=== PATIENT | male | born 1940 | race Caucasian/White ===

== ENCOUNTER 2023-01-11 17:22 | Emergency (ER) | payer MEDICARE, BC ==
[~2023-01-11] VITALS: Ht 172.7 cm; Wt 105.0 kg
[2023-01-11 17:59] VITALS: BP 143/80; PULSE 85; RESP 20; TEMP 98.4; O2SAT 95
[2023-01-11 19:02] LABS: BASOPHILS % (AUTO) 0.4 % (0-1); EOSINOPHILS # (AUTO) 0.1 X10'3 (0-0.9); EOSINOPHILS % (AUTO) 1.3 % (0-6); HEMATOCRIT 35.5 % (42.0-52.0); HEMOGLOBIN 12.3 g/dl (14.0-17.9); LYMPHOCYTES # (AUTO) 0.6 X10'3 (1.1-4.8); LYMPHOCYTES % (AUTO) 6.9 % (21-51); MEAN CORPUSCULAR HEMOGLOBIN 30.3 PG (27.0-31.0); MEAN CORPUSCULAR HGB CONC 34.5 g/dL (33.0-36.5); MEAN CORPUSCULAR VOLUME 87.8 FL (78-98); MEAN PLATELET VOLUME 8.9 FL (7.4-10.4); MONOCYTES # (AUTO) 1.2 X10'3 (0-0.9); MONOCYTES % (AUTO) 12.9 % (2-12); NEUTROPHILS # (AUTO) 7.3 X10'3 (1.8-7.7); NEUTROPHILS % (AUTO) 78.5 % (42-75); PLATELET COUNT 208 X10'3 (140-440); RED BLOOD COUNT 4.05 X10'6 (4.70-6.10); RED CELL DISTRIBUTION WIDTH 13.9 % (11.5-14.5); WHITE BLOOD COUNT 9.3 X10'3 (4.5-11.0)
[2023-01-11 19:15] LABS: ALANINE AMINOTRANSFERASE 217 U/L (12-78); ALBUMIN 2.6 G/DL (3.4-5.0); ALBUMIN/GLOBULIN RATIO 0.6 (1.1-1.5); ALKALINE PHOSPHATASE 431 IU/L (46-116); ANION GAP 8 (8-16); ASPARTATE AMINO TRANSFERASE 168 U/L (10-37); BILIRUBIN,TOTAL 1.3 MG/DL (0.1-1.0); BLOOD UREA NITROGEN 28 MG/DL (7-18); BUN/CREATININE RATIO 17.2 (10.0-20.0); CALCIUM 9.1 MG/DL (8.5-10.1); CHLORIDE 104 MMOL/L (99-107); CREATININE 1.63 MG/DL (0.60-1.10); GLUCOSE 187 MG/DL (70-104); POTASSIUM 4.2 MMOL/L (3.5-5.1); SODIUM 138 MMOL/L (135-145); TOTAL CARBON DIOXIDE 25.9 MMOL/L (24-32); eCRCL 33 ML/MIN; eGFR 41 ML/MIN
== END 2023-01-11 23:52 | disposition left against medical advice (07) ==
LOC: ER 17:23
DX: R53.1 Weakness (principal); Z53.21 Procedure and treatment not carried out due to patient leaving prior to being seen by health care provider
CPT/HCPCS: 80053; 85025; 93005; 99281

== ENCOUNTER 2023-08-02 08:00 | Inpatient (IN) | payer MEDICARE, BC ==
[~2023-08-02] VITALS: Ht 172.7 cm; Wt 102.0 kg
[2023-08-02 09:29] LABS: BASOPHILS % (AUTO) 0.2 % (0-1); EOSINOPHILS % (AUTO) 0.4 % (0-6); HEMATOCRIT 35.2 % (42.0-52.0); HEMOGLOBIN 12.3 g/dl (14.0-17.9); LYMPHOCYTES # (AUTO) 0.6 X10'3 (1.1-4.8); LYMPHOCYTES % (AUTO) 9.7 % (21-51); MEAN CORPUSCULAR HEMOGLOBIN 30.5 PG (27.0-31.0); MEAN CORPUSCULAR HGB CONC 34.9 g/dL (33.0-36.5); MEAN CORPUSCULAR VOLUME 87.5 FL (78-98); MONOCYTES # (AUTO) 0.6 X10'3 (0-0.9); MONOCYTES % (AUTO) 10.3 % (2-12); NEUTROPHILS # (AUTO) 4.8 X10'3 (1.8-7.7); NEUTROPHILS % (AUTO) 79.4 % (42-75); PLATELET COUNT 107 X10'3 (140-440); RED BLOOD COUNT 4.02 X10'6 (4.70-6.10); RED CELL DISTRIBUTION WIDTH 14.4 % (11.5-14.5); WHITE BLOOD COUNT 6.1 X10'3 (4.5-11.0)
[2023-08-02 09:52] LABS: ALBUMIN 3.2 G/DL (3.4-5.0); ANION GAP 9 (8-16); BLOOD UREA NITROGEN 35 MG/DL (7-18); CALCIUM 8.5 MG/DL (8.5-10.1); CHLORIDE 104 MMOL/L (99-107); CREATININE 1.84 MG/DL (0.60-1.10); GLUCOSE 122 MG/DL (70-104); POTASSIUM 3.3 MMOL/L (3.5-5.1); PRO BRAIN NATRIURETIC PEPTIDE 239 PG/ML (0-450); SODIUM 140 MMOL/L (135-145); TOTAL CARBON DIOXIDE 27.5 MMOL/L (24-32); eCRCL 28 ML/MIN; eGFR 35 ML/MIN
[2023-08-02] MEDS: aspirin 325mg tablet PO ONE (10:31)
[2023-08-02] MEDS ORDERED: SOLI10TA7 PO (10:44)
[2023-08-02] MEDS ORDERED: SEMA1PEN3 (10:44)
[2023-08-02] MEDS ORDERED: PREG150C47 PO (10:44)
[2023-08-02] MEDS ORDERED: GLIP10TA21 PO (10:44)
[2023-08-02] MEDS ORDERED: ATOR40TA72 PO (10:44)
[2023-08-02] MEDS ORDERED: FLO0.4C PO (10:44)
[2023-08-02] MEDS ORDERED: METF-900 PO (10:44)
[2023-08-02] MEDS ORDERED: NEBI20TA6 (10:44)
[2023-08-02] MEDS ORDERED: HYDR25TA4 PO (10:44)
[2023-08-02] MEDS ORDERED: FURO20TA4 PO (10:44)
[2023-08-02] MEDS ORDERED: TERA5CAP4 PO (10:44)
[2023-08-02] MEDS ORDERED: FLO0.4C (10:44)
[2023-08-02] MEDS ORDERED: AMLO10TA13 PO (10:44)
[2023-08-02] MEDS ORDERED: INSU200I4 SQ (10:44)
[2023-08-02] MEDS ORDERED: HYDROcodone/acetaminophen 10/325mg tab PO PRN (11:50)
[2023-08-02] MEDS ORDERED: mag hydrox/Alum hydrox/simeth 30ml oral suspension PO PRN (11:50)
[2023-08-02] MEDS ORDERED: magnesium 4gm in 100ml NS 100 ML IV PRN (11:50)
[2023-08-02] MEDS ORDERED: potassium Cl 40MEQ/1/2NS 520ml 520 ML IV PRN (11:50)
[2023-08-02] MEDS ORDERED: acetaminophen 325mg tablet PO PRN (11:50)
[2023-08-02] MEDS ORDERED: magnesium 2GM in 50ml NS 50 ML IV PRN (11:50)
[2023-08-02] MEDS ORDERED: ondansetron/PF 4mg/2ml inj IV PRN (11:50)
[2023-08-02] MEDS ORDERED: magnesium Cl slow-release 64mg tablet PO PRN (11:50)
[2023-08-02] MEDS ORDERED: magnesium hydroxide 30ml (MOM) UD suspension PO PRN (11:50)
[2023-08-02] MEDS ORDERED: potassium Cl 20 mEq SR tablet PO PRN (11:50)
[2023-08-02 13:02] LABS: CHOL/HDL RATIO 2.8 (0.00-4.99); CHOLESTEROL 91 MG/DL (0-200); HDL CHOLESTEROL 33 MG/DL (35-60); LDL CHOLESTEROL 50 MG/DL (50-100); TRIGLYCERIDES 90 MG/DL (20-135)
[2023-08-02 13:04] LABS: HEMOGLOBIN A1C 6.9 % (4.5-6.2)
[2023-08-02 13:07] LABS: APTT 31 SECONDS (22-32); INR 1.1 INR; PROTHROMBIN TIME 11.3 SECONDS (9.0-12.0)
[2023-08-02 14:36] LABS: BILIRUBIN,URINE NEGATIVE (Neg); CLARITY,URINE CLEAR (Clear); COLOR,URINE YELLOW (Yellow); GLUCOSE, URINE NEGATIVE (Neg); KETONES,URINE NEGATIVE (Neg); LEUKOCYTE ESTERASE ,URINE NEGATIVE (Neg); NITRITES, URINE NEGATIVE (Neg); OCCULT BLOOD,URINE NEGATIVE (Neg); PROTEIN,URINE NEGATIVE (Neg)
[2023-08-02 14:41] LABS: UA COLLECTION TYPE URINAL
[2023-08-02 14:42] LABS: URINE AMPHETAMINE SCREEN NEGATIVE (Neg); URINE BARBITUATE SCREEN NEGATIVE (Neg); URINE BENZODIAZEPINES SCREEN NEGATIVE (Neg); URINE CANNABINOID SCREEN NEGATIVE (Neg); URINE COCAINE SCREEN NEGATIVE (Neg); URINE METHADONE SCREEN NEGATIVE (Neg); URINE OPIATE SCREEN NEGATIVE (Neg); URINE PHENCYCLIDINE SCREEN NEGATIVE (Neg)
[2023-08-02 15:00] VITALS: BP 142/69; PULSE 68; RESP 14; TEMP 97.5; O2SAT 95
[2023-08-02] MEDS: HYDROcodone/acetaminophen 5mg/325mg tablet PO PRN (15:53)
[2023-08-02 18:00] VITALS: BP 151/76; PULSE 67; RESP 16; TEMP 97.6; O2SAT 95
[2023-08-02] MEDS ORDERED: DEXTROSE 15 GM of carb/4 tabs (each vial/BOTTLE has 4 tablets) PO PRN ×2 (18:45)
[2023-08-02] MEDS ORDERED: glucagon, human recombinant 1mg kit SUBCUT PRN (18:45)
[2023-08-02] MEDS ORDERED: dextrose 50%-water 50ml dispensing syringe IV PRN ×2 (18:45)
[2023-08-02] MEDS: K and/or MAG REPLACEMENT MC SCH (20:00)
[2023-08-02] MEDS: potassium Cl 20 mEq SR tablet PO PRN (20:29)
[2023-08-02] MEDS: docusate sod 100mg capsule PO SCH (20:29)
[2023-08-02] MEDS: pregabalin 75mg capsule PO SCH (20:29)
[2023-08-02] MEDS: heparin, porcine 5000 units/ml vial SQ SCH (20:30)
[2023-08-02] MEDS: insulin glargine (Lantus) pen - multi-dose SQ SCH (21:35)
[2023-08-02] MEDS: INSULIN LISPRO 100 UNIT/ML INSULN.PEN MULTI-DOSE SQ SCH (21:35)
[2023-08-02 21:40] VITALS: PULSE 64; RESP 16; O2SAT 94
[2023-08-02 21:45] VITALS: PULSE 65; RESP 18; O2SAT 92
[2023-08-02 22:30] VITALS: BP 121/63; PULSE 67; RESP 16; TEMP 97.5; O2SAT 96
[2023-08-03] VITALS (11 sets, daily range): BP systolic 106–154; BP diastolic 45–78; PULSE 63–90; RESP 14–20; TEMP 97.7–98.4; O2SAT 92–98
[2023-08-03 07:34] LABS: BASOPHILS % (AUTO) 0.4 % (0-1); EOSINOPHILS # (AUTO) 0.3 X10'3 (0-0.9); EOSINOPHILS % (AUTO) 4.8 % (0-6); HEMATOCRIT 36.4 % (42.0-52.0); HEMOGLOBIN 12.6 g/dl (14.0-17.9); LYMPHOCYTES # (AUTO) 0.8 X10'3 (1.1-4.8); LYMPHOCYTES % (AUTO) 15.2 % (21-51); MEAN CORPUSCULAR HEMOGLOBIN 30.5 PG (27.0-31.0); MEAN CORPUSCULAR HGB CONC 34.5 g/dL (33.0-36.5); MEAN CORPUSCULAR VOLUME 88.4 FL (78-98); MEAN PLATELET VOLUME 11.2 FL (7.4-10.4); MONOCYTES # (AUTO) 0.6 X10'3 (0-0.9); MONOCYTES % (AUTO) 11.6 % (2-12); NEUTROPHILS # (AUTO) 3.7 X10'3 (1.8-7.7); PLATELET COUNT 101 X10'3 (140-440); RED BLOOD COUNT 4.11 X10'6 (4.70-6.10); RED CELL DISTRIBUTION WIDTH 14.3 % (11.5-14.5); WHITE BLOOD COUNT 5.5 X10'3 (4.5-11.0)
[2023-08-03 07:46] LABS: APTT 32 SECONDS (22-32); PROTHROMBIN TIME 11.2 SECONDS (9.0-12.0)
[2023-08-03 07:53] LABS: ALANINE AMINOTRANSFERASE 324 U/L (12-78); ALBUMIN/GLOBULIN RATIO 0.8 (1.1-1.5); ALKALINE PHOSPHATASE 239 IU/L (46-116); ANION GAP 7 (8-16); ASPARTATE AMINO TRANSFERASE 170 U/L (10-37); BILIRUBIN,TOTAL 1.4 MG/DL (0.1-1.0); BLOOD UREA NITROGEN 31 MG/DL (7-18); BUN/CREATININE RATIO 21.4 (10.0-20.0); CALCIUM 8.6 MG/DL (8.5-10.1); CHLORIDE 107 MMOL/L (99-107); CHOL/HDL RATIO 3.6 (0.00-4.99); CHOLESTEROL 111 MG/DL (0-200); CREATININE 1.45 MG/DL (0.60-1.10); GLUCOSE 76 MG/DL (70-104); HDL CHOLESTEROL 31 MG/DL (35-60); LDL CHOLESTEROL 59 MG/DL (50-100); PHOSPHORUS 4.1 MG/DL (2.3-4.5); POTASSIUM 3.9 MMOL/L (3.5-5.1); SODIUM 144 MMOL/L (135-145); TOTAL CARBON DIOXIDE 30.1 MMOL/L (24-32); TOTAL PROTEIN 6.7 G/DL (6.4-8.2); TRIGLYCERIDES 129 MG/DL (20-135); eCRCL 36 ML/MIN; eGFR 46 ML/MIN
[2023-08-03] MEDS ORDERED: tamsulosin 0.4mg capsule PO SCH (08:00)
[2023-08-03] MEDS: oxybutynin 5mg tablet PO SCH (08:00)
[2023-08-03] MEDS: furosemide 20MG tablet PO SCH (09:10)
[2023-08-03] MEDS: amLODIPine 5mg tablet PO SCH (09:11)
[2023-08-03] MEDS: HYDROchlorothiazide 25mg tablet PO SCH (09:12)
[2023-08-03] MEDS: atorvastatin 20mg tablet PO SCH (09:15)
[2023-08-03] MEDS: tamsulosin 0.4mg capsule PO SCH (09:31)
[2023-08-03] MEDS: acetaminophen 325mg tablet PO PRN (15:47)
[2023-08-04 02:00] VITALS: BP 138/57; PULSE 71; RESP 20; TEMP 96.4; O2SAT 99
[2023-08-04 07:00] VITALS: BP 122/62; PULSE 64; RESP 20; TEMP 97.6; O2SAT 96
[2023-08-04 07:56] LABS: APTT 34 SECONDS (22-32); EOSINOPHILS # (AUTO) 0.2 X10'3 (0-0.9); HEMOGLOBIN 12.6 g/dl (14.0-17.9); MEAN CORPUSCULAR HEMOGLOBIN 30.7 PG (27.0-31.0); MONOCYTES # (AUTO) 0.5 X10'3 (0-0.9); PLATELET COUNT 107 X10'3 (140-440); PROTHROMBIN TIME 10.9 SECONDS (9.0-12.0); RED BLOOD COUNT 4.11 X10'6 (4.70-6.10); WHITE BLOOD COUNT 4.4 X10'3 (4.5-11.0)
[2023-08-04 07:58] LABS: BASOPHILS % (AUTO) 0.5 % (0-1); EOSINOPHILS % (AUTO) 5.4 % (0-6); HEMATOCRIT 36.3 % (42.0-52.0); LYMPHOCYTES % (AUTO) 22.5 % (21-51); MEAN CORPUSCULAR HGB CONC 34.7 g/dL (33.0-36.5); MEAN CORPUSCULAR VOLUME 88.5 FL (78-98); MONOCYTES % (AUTO) 11.8 % (2-12); NEUTROPHILS # (AUTO) 2.6 X10'3 (1.8-7.7); NEUTROPHILS % (AUTO) 59.8 % (42-75); RED CELL DISTRIBUTION WIDTH 13.7 % (11.5-14.5)
[2023-08-04 08:00] VITALS: BP_SYST 124; BP_SYST 128; BP_SYST 132; BP_DIAS 60; BP_DIAS 64; BP_DIAS 70; PULSE 64; PULSE 74; PULSE 78; RESP 16; O2SAT 98
[2023-08-04 08:17] LABS: LARGE PLATELETS FEW; PLATELET ESTIMATE DECREASED
[2023-08-04 08:18] LABS: ACANTHOCYTES FEW; BURR CELLS FEW
[2023-08-04 08:25] LABS: ALANINE AMINOTRANSFERASE 232 U/L (12-78); ALBUMIN/GLOBULIN RATIO 0.8 (1.1-1.5); ALKALINE PHOSPHATASE 220 IU/L (46-116); ANION GAP 5 (8-16); ASPARTATE AMINO TRANSFERASE 76 U/L (10-37); BILIRUBIN,TOTAL 1.1 MG/DL (0.1-1.0); BLOOD UREA NITROGEN 30 MG/DL (7-18); CALCIUM 8.8 MG/DL (8.5-10.1); CHLORIDE 106 MMOL/L (99-107); CREATININE 1.58 MG/DL (0.60-1.10); GLUCOSE 99 MG/DL (70-104); MAGNESIUM 1.9 MG/DL (1.5-2.4); PHOSPHORUS 4.4 MG/DL (2.3-4.5); POTASSIUM 3.9 MMOL/L (3.5-5.1); SODIUM 141 MMOL/L (135-145); TOTAL CARBON DIOXIDE 29.7 MMOL/L (24-32); TOTAL PROTEIN 6.8 G/DL (6.4-8.2); eCRCL 33 ML/MIN; eGFR 42 ML/MIN
[2023-08-04 11:00] VITALS: BP 116/59; PULSE 68; RESP 13; TEMP 97.8; O2SAT 93
== END 2023-08-04 16:07 | disposition home health service (06) | DRG 553 ==
LOC: ER 08:01 → ED HOLD 11:51 → PCU 3S 14:50
PROVIDERS: ADMIT Family Medicine; ATTEND Family Medicine
PROC: 5A09357 Assistance with Respiratory Ventilation, Less than 24 Consecutive Hours, Continuous Positive Airway Pressure (ICD-10-PCS; principal; 2023-08-03)
DX: M17.0 Bilateral primary osteoarthritis of knee (principal); I21.A1 Myocardial infarction type 2; N17.0 Acute kidney failure with tubular necrosis; I50.30 Unspecified diastolic (congestive) heart failure; I13.0 Hypertensive heart and chronic kidney disease with heart failure and stage 1 through stage 4 chronic kidney disease, or unspecified chronic kidney disease; I48.91 Unspecified atrial fibrillation; G47.33 Obstructive sleep apnea (adult) (pediatric); I25.10 Atherosclerotic heart disease of native coronary artery without angina pectoris; R29.6 Repeated falls; W06.XXXA Fall from bed, initial encounter; R79.89 Other specified abnormal findings of blood chemistry; E11.22 Type 2 diabetes mellitus with diabetic chronic kidney disease; N18.9 Chronic kidney disease, unspecified; N40.0 Benign prostatic hyperplasia without lower urinary tract symptoms; E78.5 Hyperlipidemia, unspecified; Z79.4 Long term (current) use of insulin; Z79.899 Other long term (current) drug therapy; Y93.89 Activity, other specified; Y92.89 Other specified places as the place of occurrence of the external cause; Y99.8 Other external cause status; Z86.73 Personal history of transient ischemic attack (TIA), and cerebral infarction without residual deficits
CPT/HCPCS: 36415; 70450; 71045; 73564; 80048; 80053; 80061; 80305; 81003; 82570; 82948; 83036; 83735; 83880; 84100; 84133; 84300; 84484; 85008; 85025; 85610; 85730; 87081; 93005; 93306; 94760; 97116; 97161; 97530; 99285; G0378; J1644; J1815

== ENCOUNTER 2023-10-11 11:46 | Emergency (ER) | payer MEDICARE, BC ==
[~2023-10-11] VITALS: Ht 172.7 cm; Wt 98.3 kg
[~2023-10-11 11:46] MED LIST: AMLO10TA13 PO; ATOR40TA72 PO; FLO0.4C PO; FURO20TA4 PO; GLIP10TA21 PO; HYDR25TA4 PO; INSU200I4 SQ; METF-900 PO; NEBI20TA6; PREG150C47 PO; SEMA1PEN3; SOLI10TA7 PO; TERA5CAP4 PO
[2023-10-11 12:18] LABS: EOSINOPHILS # (AUTO) 0.2 X10'3 (0-0.9)
[2023-10-11 12:20] LABS: MONOCYTES # (AUTO) 0.6 X10'3 (0-0.9); NEUTROPHILS # (AUTO) 3.6 X10'3 (1.8-7.7)
[2023-10-11 12:28] LABS: BASOPHILS % (AUTO) 0.6 % (0-1); HEMATOCRIT 32.4 % (42.0-52.0)
[2023-10-11 12:29] LABS: HEMOGLOBIN 11.3 g/dl (14.0-17.9); LYMPHOCYTES # (AUTO) 1.2 X10'3 (1.1-4.8); MEAN CORPUSCULAR HEMOGLOBIN 30.8 PG (27.0-31.0); MEAN CORPUSCULAR HGB CONC 34.8 g/dL (33.0-36.5); MEAN CORPUSCULAR VOLUME 88.4 FL (78-98); MEAN PLATELET VOLUME 10.9 FL (7.4-10.4); MONOCYTES % (AUTO) 10.1 % (2-12); NEUTROPHILS % (AUTO) 64.3 % (42-75); PLATELET COUNT 113 X10'3 (140-440); RED BLOOD COUNT 3.67 X10'6 (4.70-6.10); WHITE BLOOD COUNT 5.6 X10'3 (4.5-11.0)
[2023-10-11 12:39] LABS: ALBUMIN 3.1 G/DL (3.4-5.0); ANION GAP 10 (8-16); BLOOD UREA NITROGEN 40 MG/DL (7-18); BUN/CREATININE RATIO 21.3 (10.0-20.0); CHLORIDE 106 MMOL/L (99-107); CREATININE 1.88 MG/DL (0.60-1.10); GLUCOSE 128 MG/DL (70-104); POTASSIUM 3.9 MMOL/L (3.5-5.1); PRO BRAIN NATRIURETIC PEPTIDE 186 PG/ML (0-450); SODIUM 144 MMOL/L (135-145); TOTAL CARBON DIOXIDE 27.6 MMOL/L (24-32); eCRCL 28 ML/MIN; eGFR 34 ML/MIN
[2023-10-11 12:48] VITALS: TEMP 97.7
[2023-10-11 12:50] LABS: PLATELET ESTIMATE DECREASED
[2023-10-11 12:51] LABS: ACANTHOCYTES FEW
[2023-10-11 12:52] LABS: BURR CELLS FEW
[2023-10-11 13:19] LABS: MAGNESIUM 1.7 MG/DL (1.5-2.4)
[2023-10-11] MEDS: aspirin 81mg tab.chew PO ONE (13:26)
[2023-10-11] MEDS: normal saline 1000ml 1,000 ML IV ONE (15:02)
[2023-10-11 17:44] VITALS: BP 143/79; PULSE 78; RESP 18; O2SAT 98
== END 2023-10-11 17:50 | disposition home or self-care (01) ==
LOC: ER 11:47
DX: I95.9 Hypotension, unspecified (principal); Z79.899 Other long term (current) drug therapy; Z79.84 Long term (current) use of oral hypoglycemic drugs; Z79.4 Long term (current) use of insulin
CPT/HCPCS: 36415; 71045; 80048; 82948; 83735; 83880; 84484; 85008; 85025; 93005; 96360; 99285; J7030

== ENCOUNTER 2024-03-20 11:42 | Inpatient (IN) | payer MEDICARE, BC ==
[~2024-03-20] VITALS: Ht 172.7 cm; Wt 84.6 kg
[~2024-03-20 11:42] MED LIST changes: +ASPI-1071 PO; +ATOR20TA66 PO; -ATOR40TA72 PO; +CLOP75TA34 PO; +LANTUS SQ; -NEBI20TA6; +OMEG1CAP61 PO; -TERA5CAP4 PO
[2024-03-20 12:10] LABS: BASOPHILS % (AUTO) 0.4 % (0-1); EOSINOPHILS # (AUTO) 0.1 X10'3 (0-0.9); EOSINOPHILS % (AUTO) 1.4 % (0-6); MEAN PLATELET VOLUME 9.6 FL (7.4-10.4); MONOCYTES # (AUTO) 0.5 X10'3 (0-0.9)
[2024-03-20 12:11] LABS: HEMATOCRIT 40.7 % (42.0-52.0); HEMOGLOBIN 14.6 g/dl (14.0-17.9); LYMPHOCYTES % (AUTO) 16.4 % (21-51); MEAN CORPUSCULAR HEMOGLOBIN 30.7 PG (27.0-31.0); MEAN CORPUSCULAR HGB CONC 35.8 g/dL (33.0-36.5); MEAN CORPUSCULAR VOLUME 85.7 FL (78-98); MONOCYTES % (AUTO) 8.3 % (2-12); NEUTROPHILS # (AUTO) 4.4 X10'3 (1.8-7.7); NEUTROPHILS % (AUTO) 73.5 % (42-75); PLATELET COUNT 166 X10'3 (140-440); RED BLOOD COUNT 4.75 X10'6 (4.70-6.10); RED CELL DISTRIBUTION WIDTH 13.7 % (11.5-14.5)
[2024-03-20 12:21] LABS: APTT 34 SECONDS (22-32); PROTHROMBIN TIME 10.9 SECONDS (9.0-12.0)
[2024-03-20 12:50] LABS: ALBUMIN 3.7 G/DL (3.4-5.0); ANION GAP 10 (8-16); BLOOD UREA NITROGEN 22 MG/DL (7-18); BUN/CREATININE RATIO 15.1 (10.0-20.0); CALCIUM 9.3 MG/DL (8.5-10.1); CHLORIDE 100 MMOL/L (99-107); CREATINE KINASE 34 U/L (39-308); CREATINE KINASE MB 1.1 ng/ml (0.3-3.6); CREATININE 1.46 MG/DL (0.60-1.10); GLUCOSE 62 MG/DL (70-104); MAGNESIUM 1.5 MG/DL (1.5-2.4); POTASSIUM 3.1 MMOL/L (3.5-5.1); SODIUM 139 MMOL/L (135-145); TOTAL CARBON DIOXIDE 29.5 MMOL/L (24-32); eCRCL 36 ML/MIN; eGFR 46 ML/MIN
[2024-03-20] MEDS: normal saline 1000ml 1,000 ML IV ONE (12:56)
[2024-03-20] MEDS: acetaminophen 1,000mg/100ml IV 100 ML IV ONE (12:57)
[2024-03-20] MEDS ORDERED: hyDRALAzine 10mg tablet PO SCH (13:50)
[2024-03-20] MEDS: hydrALAZINE 20mg/ml inj. IV ONE (14:31)
[2024-03-20] MEDS: aspirin 81mg tab.chew PO ONE (14:31)
[2024-03-20] MEDS ORDERED: acetaminophen 325mg tablet PO PRN (14:45)
[2024-03-20] MEDS ORDERED: magnesium Cl slow-release 64mg tablet PO PRN ×2 (14:45)
[2024-03-20] MEDS ORDERED: magnesium sulf-water 4G/100mL 100 ML IV PRN ×2 (14:45)
[2024-03-20] MEDS: PERFLUTREN PROTEIN-A MICROSPHR (Optison) 0.22 MG/ML 3ML VIAL IV ONE (14:45)
[2024-03-20] MEDS ORDERED: potassium Cl 40MEQ/1/2NS 520ml 520 ML IV PRN (14:45)
[2024-03-20] MEDS ORDERED: magnesium sulf-water 2g/50mL 50 ML IV PRN ×2 (14:45)
[2024-03-20] MEDS ORDERED: ondansetron/PF 4mg/2ml inj IV PRN (14:45)
[2024-03-20] MEDS ORDERED: potassium Cl 20 mEq SR tablet PO PRN (14:45)
[2024-03-20] MEDS: diphenhydrAMINE 50 mg/ml inj IV ONE ×2 (15:06→16:37)
[2024-03-20 15:44] LABS: BILIRUBIN,URINE NEGATIVE (Neg); CLARITY,URINE CLEAR (Clear); COLOR,URINE YELLOW (Yellow); GLUCOSE, URINE NEGATIVE (Neg); KETONES,URINE NEGATIVE (Neg); LEUKOCYTE ESTERASE ,URINE NEGATIVE (Neg); NITRITES, URINE NEGATIVE (Neg); OCCULT BLOOD,URINE NEGATIVE (Neg); PH,URINE 5.5 (4.8-8.0); PROTEIN,URINE NEGATIVE (Neg); UROBILINOGEN,URINE 0.2 E.U/dL (0.2-1.0)
[2024-03-20 15:47] LABS: UA COLLECTION TYPE URINAL
[2024-03-20] MEDS: dexamethasone sod phosphate 10mg/ml inj IV STA (16:32)
[2024-03-20] MEDS: haloperidol lactate 5mg/ml inj IM ONE (16:33)
[2024-03-20] MEDS: diazepam inj 5 MG/ML inj. IV ONE (16:39)
[2024-03-20 19:33] VITALS: BP 166/79; PULSE 93; RESP 21; TEMP 97.9; O2SAT 97
[2024-03-20 20:00] VITALS: BP_SYST 169; BP_SYST 178; BP_DIAS 78; PULSE 78; PULSE 89; RESP 21; O2SAT 97
[2024-03-20] MEDS: K and/or MAG REPLACEMENT MC SCH (20:00)
[2024-03-20 21:33] VITALS: RESP 21; O2SAT 97
[2024-03-20 22:00] VITALS: BP 174/91; PULSE 85; RESP 16; TEMP 96.8; O2SAT 95
[2024-03-20] MEDS: potassium Cl 20 mEq SR tablet PO PRN (22:03)
[2024-03-20] MEDS: HYDROcodone/acetaminophen 5mg/325mg tablet PO PRN (22:26)
[2024-03-21] VITALS (14 sets, daily range): BP systolic 74–202; BP diastolic 39–93; PULSE 59–90; RESP 13–22; TEMP 97.6–98; O2SAT 65–100
[2024-03-21] MEDS ORDERED: dextrose 50%-water 50ml dispensing syringe IV PRN ×2 (03:35)
[2024-03-21] MEDS ORDERED: DEXTROSE 15 GM of carb/4 tabs (each vial/BOTTLE has 4 tablets) PO PRN ×2 (03:35)
[2024-03-21] MEDS ORDERED: glucagon, human recombinant 1mg kit SUBCUT PRN (03:35)
[2024-03-21] MEDS: amLODIPine 5mg tablet PO ONE (03:54)
[2024-03-21] MEDS: pregabalin 75mg capsule PO SCH (07:04)
[2024-03-21] MEDS: furosemide 20MG tablet PO SCH (07:04)
[2024-03-21] MEDS: HYDROchlorothiazide 25mg tablet PO SCH (07:04)
[2024-03-21] MEDS: amLODIPine 5mg tablet PO SCH (07:05)
[2024-03-21] MEDS: clopidogrel 75mg tablet PO SCH (07:05)
[2024-03-21 07:35] LABS: BASOPHILS % (AUTO) 0.2 % (0-1); EOSINOPHILS % (AUTO) 0.1 % (0-6); HEMATOCRIT 38.6 % (42.0-52.0); HEMOGLOBIN 13.8 g/dl (14.0-17.9); LYMPHOCYTES # (AUTO) 1.1 X10'3 (1.1-4.8); LYMPHOCYTES % (AUTO) 13.2 % (21-51); MEAN CORPUSCULAR HEMOGLOBIN 30.5 PG (27.0-31.0); MEAN CORPUSCULAR HGB CONC 35.7 g/dL (33.0-36.5); MEAN CORPUSCULAR VOLUME 85.6 FL (78-98); MEAN PLATELET VOLUME 10.1 FL (7.4-10.4); MONOCYTES # (AUTO) 0.6 X10'3 (0-0.9); MONOCYTES % (AUTO) 6.7 % (2-12); NEUTROPHILS # (AUTO) 6.5 X10'3 (1.8-7.7); NEUTROPHILS % (AUTO) 79.8 % (42-75); PLATELET COUNT 174 X10'3 (140-440); RED BLOOD COUNT 4.51 X10'6 (4.70-6.10); RED CELL DISTRIBUTION WIDTH 13.4 % (11.5-14.5); WHITE BLOOD COUNT 8.2 X10'3 (4.5-11.0)
[2024-03-21] MEDS: INSULIN LISPRO 100 UNIT/ML INSULN.PEN MULTI-DOSE SQ SCH (07:36)
[2024-03-21 08:03] LABS: ALBUMIN 3.3 G/DL (3.4-5.0); ANION GAP 11 (8-16); BLOOD UREA NITROGEN 28 MG/DL (7-18); BUN/CREATININE RATIO 19.6 (10.0-20.0); CALCIUM 8.6 MG/DL (8.5-10.1); CHLORIDE 100 MMOL/L (99-107); CREATININE 1.43 MG/DL (0.60-1.10); GLUCOSE 182 MG/DL (70-104); MAGNESIUM 1.6 MG/DL (1.5-2.4); POTASSIUM 3.9 MMOL/L (3.5-5.1); SODIUM 136 MMOL/L (135-145); TOTAL CARBON DIOXIDE 24.9 MMOL/L (24-32); eCRCL 37 ML/MIN; eGFR 47 ML/MIN
[2024-03-21] MEDS: cloNIDine 0.1 mg tablet PO ONE (08:11)
[2024-03-21] MEDS: aspirin 81mg, enteric-coated 1 TAB TABLET.DR PO SCH (08:12)
[2024-03-21] MEDS: diltiazem 30mg tablet PO SCH (15:19)
[2024-03-22 02:00] VITALS: BP 108/55; PULSE 57; RESP 17; TEMP 97.3; O2SAT 98
[2024-03-22 06:00] VITALS: BP_SYST 109; BP_SYST 115; BP_SYST 132; BP_DIAS 162; BP_DIAS 50; BP_DIAS 55; BP_DIAS 62; PULSE 56; PULSE 59; PULSE 62; RESP 16; TEMP 97; O2SAT 97
[2024-03-22 07:55] LABS: ALBUMIN 3.2 G/DL (3.4-5.0); ANION GAP 7 (8-16); BLOOD UREA NITROGEN 36 MG/DL (7-18); BUN/CREATININE RATIO 19.7 (10.0-20.0); CALCIUM 8.7 MG/DL (8.5-10.1); CHLORIDE 102 MMOL/L (99-107); CREATININE 1.83 MG/DL (0.60-1.10); GLUCOSE 163 MG/DL (70-104); MAGNESIUM 1.9 MG/DL (1.5-2.4); POTASSIUM 3.9 MMOL/L (3.5-5.1); SODIUM 138 MMOL/L (135-145); TOTAL CARBON DIOXIDE 29.3 MMOL/L (24-32); eCRCL 29 ML/MIN; eGFR 35 ML/MIN
[2024-03-22 08:00] VITALS: RESP 19; O2SAT 95
[2024-03-22 08:23] LABS: BASOPHILS % (AUTO) 0.6 % (0-1); EOSINOPHILS # (AUTO) 0.2 X10'3 (0-0.9); EOSINOPHILS % (AUTO) 3.6 % (0-6); HEMATOCRIT 42.4 % (42.0-52.0); HEMOGLOBIN 14.6 g/dl (14.0-17.9); LYMPHOCYTES # (AUTO) 2.2 X10'3 (1.1-4.8); LYMPHOCYTES % (AUTO) 32.3 % (21-51); MEAN CORPUSCULAR HEMOGLOBIN 31.1 PG (27.0-31.0); MEAN CORPUSCULAR HGB CONC 34.3 g/dL (33.0-36.5); MEAN CORPUSCULAR VOLUME 90.5 FL (78-98); MEAN PLATELET VOLUME 9.5 FL (7.4-10.4); MONOCYTES # (AUTO) 0.8 X10'3 (0-0.9); NEUTROPHILS # (AUTO) 3.6 X10'3 (1.8-7.7); NEUTROPHILS % (AUTO) 52.5 % (42-75); PLATELET COUNT 160 X10'3 (140-440); RED BLOOD COUNT 4.68 X10'6 (4.70-6.10); RED CELL DISTRIBUTION WIDTH 13.7 % (11.5-14.5); WHITE BLOOD COUNT 6.9 X10'3 (4.5-11.0)
[2024-03-22 11:00] VITALS: BP 82/54; PULSE 57; RESP 12; TEMP 97.9; O2SAT 98
[2024-03-22] MEDS ORDERED: DILT-36 PO (13:14)
== END 2024-03-22 14:34 | disposition home health service (06) | DRG 280 ==
LOC: ER 11:42 → ED HOLD 14:50 → PCU 3S 19:25
PROVIDERS: ADMIT Internal Medicine; ATTEND Internal Medicine
DX: I16.1 Hypertensive emergency (principal); N17.0 Acute kidney failure with tubular necrosis; I21.A1 Myocardial infarction type 2; I67.4 Hypertensive encephalopathy; E11.22 Type 2 diabetes mellitus with diabetic chronic kidney disease; N18.9 Chronic kidney disease, unspecified; I48.91 Unspecified atrial fibrillation; I12.9 Hypertensive chronic kidney disease with stage 1 through stage 4 chronic kidney disease, or unspecified chronic kidney disease; G25.81 Restless legs syndrome; N40.0 Benign prostatic hyperplasia without lower urinary tract symptoms; E78.5 Hyperlipidemia, unspecified; I25.2 Old myocardial infarction; Z86.73 Personal history of transient ischemic attack (TIA), and cerebral infarction without residual deficits; Z88.8 Allergy status to other drugs, medicaments and biological substances; Z79.82 Long term (current) use of aspirin; Z79.84 Long term (current) use of oral hypoglycemic drugs; Z79.899 Other long term (current) drug therapy
CPT/HCPCS: 36415; 70450; 71045; 80048; 81003; 82550; 82553; 82948; 83036; 83735; 83874; 84484; 85025; 85610; 85730; 87081; 92508; 92616; 93005; 93308; 97116; 97161; 97530; 99285; G0378; J0131; J0360; J1100; J1200; J1630; J1815; J7030

== ENCOUNTER 2024-06-07 12:32 | Inpatient (IN) | payer MEDICARE, BC ==
[~2024-06-07] VITALS: Ht 172.7 cm; Wt 85.0 kg
[~2024-06-07 12:32] MED LIST changes: -AMLO10TA13 PO; -ATOR20TA66 PO; +DILT-36 PO; -FURO20TA4 PO; -GLIP10TA21 PO; -HYDR25TA4 PO; -LANTUS SQ; -OMEG1CAP61 PO; -SEMA1PEN3
[2024-06-07 13:11] LABS: BASOPHILS % (AUTO) 0.3 % (0-1); EOSINOPHILS % (AUTO) 0.1 % (0-6); HEMATOCRIT 32.3 % (42.0-52.0); LYMPHOCYTES # (AUTO) 0.8 X10'3 (1.1-4.8); LYMPHOCYTES % (AUTO) 7.6 % (21-51); MEAN CORPUSCULAR HEMOGLOBIN 29.7 PG (27.0-31.0); MEAN CORPUSCULAR HGB CONC 33.9 g/dL (33.0-36.5); MEAN CORPUSCULAR VOLUME 87.6 FL (78-98); MEAN PLATELET VOLUME 9.7 FL (7.4-10.4); MONOCYTES # (AUTO) 0.5 X10'3 (0-0.9); MONOCYTES % (AUTO) 4.9 % (2-12); NEUTROPHILS # (AUTO) 8.6 X10'3 (1.8-7.7); NEUTROPHILS % (AUTO) 87.1 % (42-75); PLATELET COUNT 145 X10'3 (140-440); RED BLOOD COUNT 3.69 X10'6 (4.70-6.10); RED CELL DISTRIBUTION WIDTH 15.3 % (11.5-14.5); WHITE BLOOD COUNT 9.9 X10'3 (4.5-11.0)
[2024-06-07 13:25] LABS: ALANINE AMINOTRANSFERASE 190 U/L (12-78); ALBUMIN 2.2 G/DL (3.4-5.0); ALBUMIN/GLOBULIN RATIO 0.6 (1.1-1.5); ALKALINE PHOSPHATASE 485 IU/L (46-116); ANION GAP 8 (8-16); ASPARTATE AMINO TRANSFERASE 185 U/L (10-37); BILIRUBIN,TOTAL 3.2 MG/DL (0.1-1.0); BLOOD UREA NITROGEN 41 MG/DL (7-18); BUN/CREATININE RATIO 24.7 (10.0-20.0); CALCIUM 8.2 MG/DL (8.5-10.1); CHLORIDE 107 MMOL/L (99-107); CREATININE 1.66 MG/DL (0.60-1.10); GLUCOSE 123 MG/DL (70-104); POTASSIUM 4.2 MMOL/L (3.5-5.1); SODIUM 141 MMOL/L (135-145); TOTAL CARBON DIOXIDE 26.3 MMOL/L (24-32); eCRCL 31 ML/MIN; eGFR 40 ML/MIN
[2024-06-07 13:28] LABS: LACTIC SEPSIS 1.8 MMOL/L (0.4-2.0)
[2024-06-07 13:34] LABS: PRO BRAIN NATRIURETIC PEPTIDE 1210 PG/ML (0-450)
[2024-06-07] MEDS ORDERED: SEMA1PEN3 SQ (14:25)
[2024-06-07] MEDS ORDERED: AMLO10TA13 PO (14:25)
[2024-06-07] MEDS ORDERED: PREG150C PO (14:25)
[2024-06-07] MEDS ORDERED: ATOR40TA72 PO (14:25)
[2024-06-07] MEDS ORDERED: INSU200I4 SUBCUT (14:25)
[2024-06-07] MEDS ORDERED: VIBE75TA PO (14:25)
[2024-06-07] MEDS ORDERED: AMLO5TAB16 PO (14:25)
[2024-06-07] MEDS ORDERED: APIX5TAB3 PO (14:25)
[2024-06-07] MEDS ORDERED: NEBI20TA6 (14:26)
[2024-06-07] MEDS ORDERED: mag hydrox/Alum hydrox/simeth 30ml oral suspension PO PRN (14:45)
[2024-06-07] MEDS ORDERED: ondansetron/PF 4mg/2ml inj IV PRN (14:45)
[2024-06-07] MEDS ORDERED: magnesium hydroxide 30ml (MOM) UD suspension PO PRN (14:45)
[2024-06-07] MEDS ORDERED: diphenhydrAMINE 25mg capsule PO PRN (14:45)
[2024-06-07] MEDS ORDERED: oxyCODONE SR 10mg (sust. release) tab PO PRN (14:45)
[2024-06-07] MEDS ORDERED: magnesium sulf-water 4G/100mL 100 ML IV PRN (14:45)
[2024-06-07] MEDS ORDERED: potassium Cl 40MEQ/1/2NS 520ml 520 ML IV PRN (14:45)
[2024-06-07] MEDS ORDERED: potassium Cl 20 mEq SR tablet PO PRN ×2 (14:45)
[2024-06-07] MEDS ORDERED: magnesium sulf-water 2g/50mL 50 ML IV PRN (14:45)
[2024-06-07 14:54] LABS: BILIRUBIN,URINE SMALL (Neg); CLARITY,URINE CLEAR (Clear); COLOR,URINE AMBER (Yellow); GLUCOSE, URINE NEGATIVE (Neg); KETONES,URINE TRACE mg/dl (Neg); LEUKOCYTE ESTERASE ,URINE NEGATIVE (Neg); NITRITES, URINE NEGATIVE (Neg); OCCULT BLOOD,URINE NEGATIVE (Neg); PROTEIN,URINE 30 mg/dl (Neg); UROBILINOGEN,URINE >=8.0 E.U/dL (0.2-1.0)
[2024-06-07 15:01] LABS: URINE AMPHETAMINE SCREEN NEGATIVE (Neg); URINE BARBITUATE SCREEN NEGATIVE (Neg); URINE BENZODIAZEPINES SCREEN NEGATIVE (Neg); URINE CANNABINOID SCREEN NEGATIVE (Neg); URINE COCAINE SCREEN NEGATIVE (Neg); URINE METHADONE SCREEN NEGATIVE (Neg); URINE OPIATE SCREEN NEGATIVE (Neg); URINE PHENCYCLIDINE SCREEN NEGATIVE (Neg)
[2024-06-07 15:06] LABS: UA COLLECTION TYPE NON-SPECIFIED
[2024-06-07 15:07] LABS: BACTERIA,URINE FEW /HPF (Neg); MUCUS STRANDS NONE SEEN /LPF (Neg); SQUAMOUS EPITHELIAL CELL,UR FEW /LPF (FEW); TRANSITIONAL EPI CELLS,URINE FEW /HPF
[2024-06-07 15:10] LABS: LIPASE 193 U/L (16-77)
[2024-06-07 15:37] LABS: MAGNESIUM 2.1 MG/DL (1.5-2.4); POTASSIUM 4.1 MMOL/L (3.5-5.1)
[2024-06-07 15:39] LABS: INR 1.2 INR; PROTHROMBIN TIME 12.8 SECONDS (9.0-12.0)
[2024-06-07] MEDS: ringers solution, lacted 1,000 ML IV SCH (15:50)
[2024-06-07] MEDS: dextrose 50%-water 50ml dispensing syringe IV ONE (16:17)
[2024-06-07] MEDS ORDERED: glucagon, human recombinant 1mg kit SUBCUT PRN (16:25)
[2024-06-07] MEDS ORDERED: DEXTROSE 15 GM of carb/4 tabs (each vial/BOTTLE has 4 tablets) PO PRN ×2 (16:25)
[2024-06-07] MEDS ORDERED: dextrose 50%-water 50ml dispensing syringe IV PRN (16:25)
[2024-06-07] MEDS ORDERED: LORazepam 1 MG tablet PO PRN (16:55)
[2024-06-07] MEDS: INSULIN LISPRO 100 UNIT/ML INSULN.PEN MULTI-DOSE SQ SCH (17:00)
[2024-06-07] MEDS: LORazepam 1 MG tablet PO ONE (17:01)
[2024-06-07] MEDS: docusate sod 100mg capsule PO SCH (20:00)
[2024-06-07] MEDS: K and/or MAG REPLACEMENT MC SCH (20:06)
[2024-06-07] MEDS: heparin, porcine 5000 units/ml vial SQ SCH (20:20)
[2024-06-07 22:45] VITALS: BP 123/47; PULSE 84; RESP 16; TEMP 97.9; O2SAT 96
[2024-06-08] VITALS (7 sets, daily range): BP systolic 138–167; BP diastolic 61–77; PULSE 83–85; RESP 13–18; TEMP 97.3–99.7; O2SAT 94–98
[2024-06-08 06:24] LABS: INR 1.2 INR; PROTHROMBIN TIME 12.8 SECONDS (9.0-12.0)
[2024-06-08 06:30] LABS: BASOPHILS % (AUTO) 0.4 % (0-1); EOSINOPHILS # (AUTO) 0.1 X10'3 (0-0.9); EOSINOPHILS % (AUTO) 0.9 % (0-6); HEMATOCRIT 33.9 % (42.0-52.0); HEMOGLOBIN 11.4 g/dl (14.0-17.9); LYMPHOCYTES # (AUTO) 0.9 X10'3 (1.1-4.8); MEAN CORPUSCULAR HEMOGLOBIN 29.6 PG (27.0-31.0); MEAN CORPUSCULAR HGB CONC 33.7 g/dL (33.0-36.5); MEAN CORPUSCULAR VOLUME 87.8 FL (78-98); MEAN PLATELET VOLUME 10.4 FL (7.4-10.4); MONOCYTES # (AUTO) 0.6 X10'3 (0-0.9); MONOCYTES % (AUTO) 5.2 % (2-12); NEUTROPHILS # (AUTO) 9.4 X10'3 (1.8-7.7); NEUTROPHILS % (AUTO) 85.5 % (42-75); PLATELET COUNT 134 X10'3 (140-440); RED BLOOD COUNT 3.86 X10'6 (4.70-6.10); RED CELL DISTRIBUTION WIDTH 15.4 % (11.5-14.5)
[2024-06-08 06:51] LABS: ALANINE AMINOTRANSFERASE 156 U/L (12-78); ALBUMIN 2.2 G/DL (3.4-5.0); ALBUMIN/GLOBULIN RATIO 0.5 (1.1-1.5); ALKALINE PHOSPHATASE 469 IU/L (46-116); ANION GAP 8 (8-16); ASPARTATE AMINO TRANSFERASE 115 U/L (10-37); BILIRUBIN,TOTAL 2.6 MG/DL (0.1-1.0); BLOOD UREA NITROGEN 39 MG/DL (7-18); BUN/CREATININE RATIO 29.3 (10.0-20.0); CALCIUM 8.3 MG/DL (8.5-10.1); CHLORIDE 108 MMOL/L (99-107); CREATININE 1.33 MG/DL (0.60-1.10); GLUCOSE 78 MG/DL (70-104); POTASSIUM 3.6 MMOL/L (3.5-5.1); SODIUM 142 MMOL/L (135-145); TOTAL CARBON DIOXIDE 25.7 MMOL/L (24-32); TOTAL PROTEIN 6.3 G/DL (6.4-8.2); eCRCL 39 ML/MIN; eGFR 51 ML/MIN
[2024-06-08] MEDS ORDERED: aminophylline 500mg/20ml vial IV PRN (07:25)
[2024-06-08] MEDS ORDERED: nitroGLYCERIN 0.4mg SUBLingual tab SL PRN (07:25)
[2024-06-08] MEDS ORDERED: regadenoson 0.4mg/5ml syringe IV PRN (07:25)
[2024-06-08] MEDS ORDERED: metoprolol tartrate 1mg/ml inj IV PRN (07:25)
[2024-06-08] MEDS: dextrose 50%-water 50ml dispensing syringe IV PRN (08:00)
[2024-06-08] MEDS: piperacillin/tazo 3.375gm/50ml 50 ML IV SCH (09:05)
[2024-06-08] MEDS ORDERED: iohexol 300mg/ml 100ml inj. ONE (10:10)
[2024-06-08] MEDS: acetaminophen 325mg tablet PO ONE (23:00)
[2024-06-08] MEDS: metoprolol tartrate 50mg tablet PO SCH (23:01)
[2024-06-09] VITALS (12 sets, daily range): BP systolic 111–185; BP diastolic 47–131; PULSE 77–93; RESP 15–18; TEMP 97.5–98.1; O2SAT 93–98
[2024-06-09] MEDS: amLODIPine 5mg tablet PO SCH (05:47)
[2024-06-09] MEDS: acetaminophen 325mg tablet PO ONE (05:47)
[2024-06-09 06:20] LABS: BASOPHILS % (AUTO) 0.5 % (0-1); EOSINOPHILS # (AUTO) 0.3 X10'3 (0-0.9); EOSINOPHILS % (AUTO) 5.6 % (0-6); HEMATOCRIT 32.7 % (42.0-52.0); HEMOGLOBIN 11.2 g/dl (14.0-17.9); INR 1.1 INR; LYMPHOCYTES # (AUTO) 0.6 X10'3 (1.1-4.8); MEAN CORPUSCULAR HGB CONC 34.4 g/dL (33.0-36.5); MEAN PLATELET VOLUME 10.6 FL (7.4-10.4); MONOCYTES # (AUTO) 0.4 X10'3 (0-0.9)
[2024-06-09 06:23] LABS: LYMPHOCYTES % (AUTO) 12.8 % (21-51); MEAN CORPUSCULAR VOLUME 87.4 FL (78-98); MONOCYTES % (AUTO) 8.9 % (2-12); NEUTROPHILS # (AUTO) 3.6 X10'3 (1.8-7.7); NEUTROPHILS % (AUTO) 72.2 % (42-75); PLATELET COUNT 128 X10'3 (140-440); RED BLOOD COUNT 3.74 X10'6 (4.70-6.10); RED CELL DISTRIBUTION WIDTH 15.2 % (11.5-14.5); WHITE BLOOD COUNT 4.9 X10'3 (4.5-11.0)
[2024-06-09 06:45] LABS: ALANINE AMINOTRANSFERASE 113 U/L (12-78); ALBUMIN/GLOBULIN RATIO 0.5 (1.1-1.5); ALKALINE PHOSPHATASE 444 IU/L (46-116); ANION GAP 10 (8-16); ASPARTATE AMINO TRANSFERASE 60 U/L (10-37); BILIRUBIN,TOTAL 1.5 MG/DL (0.1-1.0); BLOOD UREA NITROGEN 34 MG/DL (7-18); BUN/CREATININE RATIO 25.2 (10.0-20.0); CALCIUM 8.6 MG/DL (8.5-10.1); CHLORIDE 107 MMOL/L (99-107); CREATININE 1.35 MG/DL (0.60-1.10); GLUCOSE 146 MG/DL (70-104); MAGNESIUM 1.8 MG/DL (1.5-2.4); POTASSIUM 3.6 MMOL/L (3.5-5.1); SODIUM 142 MMOL/L (135-145); TOTAL PROTEIN 6.2 G/DL (6.4-8.2); eCRCL 38 ML/MIN; eGFR 50 ML/MIN
[2024-06-09] MEDS: pregabalin 75mg capsule PO SCH (07:22)
[2024-06-09] MEDS: apixaban 5mg tablet PO SCH (07:22)
[2024-06-09] MEDS: atorvastatin 20mg tablet PO SCH (07:22)
[2024-06-09] MEDS: tamsulosin 0.4mg capsule PO SCH (07:22)
[2024-06-09] MEDS: VIBEGRON 75 MG PO SCH (08:00)
[2024-06-09] MEDS: regadenoson 0.4mg/5ml syringe IV PRN (09:26)
[2024-06-09] MEDS: HYDROchlorothiazide 25mg tablet PO SCH (10:50)
[2024-06-09] MEDS: azithromycin/NS 500mg/250ml 250 ML IV ONE (11:10)
[2024-06-09] MEDS: CefTRIAXone 2gm/D5W 50ml BAG 50 ML IV ONE (11:11)
[2024-06-10 06:00] VITALS: BP 172/84; PULSE 83; RESP 14; TEMP 98.6; O2SAT 96
[2024-06-10 06:47] LABS: BASOPHILS % (AUTO) 0.5 % (0-1); EOSINOPHILS # (AUTO) 0.2 X10'3 (0-0.9); EOSINOPHILS % (AUTO) 4.7 % (0-6); HEMATOCRIT 33.5 % (42.0-52.0); HEMOGLOBIN 11.4 g/dl (14.0-17.9); LYMPHOCYTES # (AUTO) 0.6 X10'3 (1.1-4.8); LYMPHOCYTES % (AUTO) 12.2 % (21-51); MEAN CORPUSCULAR HEMOGLOBIN 29.9 PG (27.0-31.0); MEAN CORPUSCULAR VOLUME 87.9 FL (78-98); MEAN PLATELET VOLUME 10.4 FL (7.4-10.4); MONOCYTES # (AUTO) 0.5 X10'3 (0-0.9); MONOCYTES % (AUTO) 9.6 % (2-12); NEUTROPHILS # (AUTO) 3.6 X10'3 (1.8-7.7); PLATELET COUNT 145 X10'3 (140-440); RED BLOOD COUNT 3.81 X10'6 (4.70-6.10); RED CELL DISTRIBUTION WIDTH 15.3 % (11.5-14.5); WHITE BLOOD COUNT 4.9 X10'3 (4.5-11.0)
[2024-06-10 06:54] LABS: PROTHROMBIN TIME 10.8 SECONDS (9.0-12.0)
[2024-06-10 07:25] LABS: ALANINE AMINOTRANSFERASE 85 U/L (12-78); ALBUMIN/GLOBULIN RATIO 0.5 (1.1-1.5); ALKALINE PHOSPHATASE 404 IU/L (46-116); ANION GAP 11 (8-16); ASPARTATE AMINO TRANSFERASE 44 U/L (10-37); BILIRUBIN,TOTAL 1.1 MG/DL (0.1-1.0); BLOOD UREA NITROGEN 28 MG/DL (7-18); BUN/CREATININE RATIO 24.3 (10.0-20.0); CALCIUM 8.5 MG/DL (8.5-10.1); CHLORIDE 108 MMOL/L (99-107); CREATININE 1.15 MG/DL (0.60-1.10); GLUCOSE 158 MG/DL (70-104); MAGNESIUM 1.8 MG/DL (1.5-2.4); SODIUM 141 MMOL/L (135-145); TOTAL PROTEIN 6.2 G/DL (6.4-8.2); eCRCL 45 ML/MIN; eGFR 60 ML/MIN
[2024-06-10 07:48] LABS: POTASSIUM 3.8 MMOL/L (3.5-5.1)
[2024-06-10] MEDS: CefTRIAXone 2gm/D5W 50ml BAG 50 ML IV SCH (08:58)
[2024-06-10] MEDS: azithromycin/NS 500mg/250ml 250 ML IV SCH (08:59)
[2024-06-10 10:00] VITALS: BP 153/69; PULSE 85; RESP 14; TEMP 98.5; O2SAT 95
[2024-06-10] MEDS: carVEDilol 3.125mg tablet PO ONE (10:31)
[2024-06-10] MEDS: acetaminophen 325mg tablet PO PRN (10:34)
[2024-06-10 11:25] VITALS: PULSE 80
[2024-06-10] MEDS ORDERED: LEVO750T68 PO (11:25)
[2024-06-10] MEDS ORDERED: CARV-164 PO (11:25)
[2024-06-10] MEDS: hydrALAZINE 20mg/ml inj. IV ONE (11:25)
[2024-06-10 11:30] VITALS: BP 120/59
[2024-06-10] MEDS ORDERED: carVEDilol 3.125mg tablet PO SCH (20:00)
[2024-06-13 05:44] LABS: HBSAG SCREEN Negative (Negative); HEP A AB, IGM Negative (Negative); HEP B CORE AB, IGM Negative (Negative); HEP B SURF AB Reactive (.); HEPATITIS C VIRUS ANTIBODY Non Reactive (Non Reactive)
== END 2024-06-10 13:38 | disposition home health service (06) | DRG 280 ==
LOC: ER 12:33 → ED HOLD 14:51 → ORTHO 4S 22:49
PROVIDERS: ADMIT Nurse Practitioner Family; ATTEND Nurse Practitioner Family
PROC: BW251ZZ Computerized Tomography (CT Scan) of Chest, Abdomen and Pelvis using Low Osmolar Contrast (ICD-10-PCS; principal; 2024-06-08)
PROC: 4A02XM4 Measurement of Cardiac Total Activity, External Approach (ICD-10-PCS; 2024-06-09)
PROC: 3E073KZ Introduction of Other Diagnostic Substance into Coronary Artery, Percutaneous Approach (ICD-10-PCS; 2024-06-09)
DX: I21.4 Non-ST elevation (NSTEMI) myocardial infarction (principal); G93.41 Metabolic encephalopathy; J18.9 Pneumonia, unspecified organism; B17.9 Acute viral hepatitis, unspecified; K80.51 Calculus of bile duct without cholangitis or cholecystitis with obstruction; N17.9 Acute kidney failure, unspecified; N39.0 Urinary tract infection, site not specified; Z66 Do not resuscitate; N18.30 Chronic kidney disease, stage 3 unspecified; E86.0 Dehydration; R62.7 Adult failure to thrive; Z68.28 Body mass index [BMI] 28.0-28.9, adult; E07.9 Disorder of thyroid, unspecified; D64.9 Anemia, unspecified; E11.22 Type 2 diabetes mellitus with diabetic chronic kidney disease; E78.5 Hyperlipidemia, unspecified; I25.10 Atherosclerotic heart disease of native coronary artery without angina pectoris; I44.0 Atrioventricular block, first degree; I48.91 Unspecified atrial fibrillation; Z79.01 Long term (current) use of anticoagulants; Z79.4 Long term (current) use of insulin; Z86.73 Personal history of transient ischemic attack (TIA), and cerebral infarction without residual deficits
CPT/HCPCS: 36415; 70450; 71045; 71260; 74177; 74181; 76700; 78452; 80053; 80305; 81001; 82140; 82948; 83605; 83690; 83735; 83880; 84132; 84145; 84484; 85025; 85610; 86705; 86706; 86709; 86803; 86885; 86900; 86901; 87040; 87081; 87088; 87340; 87522; 92508; 92616; 93005; 93017; 93975; 97116; 97161; 97530; 99285; A6212; A9500; C1758; G0378; J0456; J0696; J1644; J1815; J2543; J2785; J3490; J7120; Q9967